=== PATIENT | female | born 1950 | race Caucasian/White ===

== ENCOUNTER 2018-04-12 08:04 | Inpatient (IN) | payer OTHER, SELFPAY ==
[2018-03-23 07:56] VITALS: BMI 28.1
[2018-04-12] VITALS (12 sets, daily range): BP systolic 110–167; BP diastolic 59–84; PULSE 15–64; RESP 12–56; TEMP 35.8–37; O2SAT 93–97; BMI 28.1
--- NOTE | 2018-04-12 06:00 | DI.RAD.S_ITS ---
PROCEDURE: XR KNEE RT 1TO2V INDICATIONS: prosthesis placement TECHNIQUE: 2 view(s) of the knee acquired. COMPARISON: SNO Outside Film, RG, KNEE 3VW (RT), 08/19/2016, 10:41. FINDINGS: Bones: Patient is status post knee joint arthroplasty. Hardware components are in expected positions. Visualized bony structures are intact. Soft tissues: Overlying postoperative changes are noted. Soft tissue air, edema, and fluid are present. Anterior skin hal are noted. No unexpected radiopaque foreign bodies are identified. IMPRESSION: Expected interval postsurgical changes related to a right knee arthroplasty. Dictated by: Jim Quick M.D. on 04/12/2018 at 13:09 Approved by: Jim Quick M.D. on 04/12/2018 at 13:10
[2018-04-12] MEDS: LACTATED RINGERS 1,000 ML 42 ML IV ×2 (09:20→13:52)
[2018-04-12] MEDS: PREGABALIN 75 MG CAPSULE PO (09:36)
[2018-04-12] MEDS: ACETAMINOPHEN 325 MG TABLET 975 MG PO ×3 (09:36→21:14)
[2018-04-12] MEDS: CELECOXIB 200 MG CAPSULE PO (11:04)
[2018-04-12] MEDS: CLINDAMYCIN 900 MG/50 ML PIGGYBACK 50 MG IV ×2 (11:50→20:30)
--- NOTE | 2018-04-12 11:54 | PM.PREOP ---
Pre-operative Note Interval Note Pre-op Check: Yes History & Physical Reviewed by Physician and Yes Exam Performed Changes: No
--- NOTE | 2018-04-12 11:54 | PM.OP.1 ---
Operative Date/Time/Diagnoses Date of procedure: 04/12/18 Time of procedure: 13:42 Pre-op diagnosis: Right knee osteoarthritis with valgus alignment Post-op diagnosis: same Procedure & Clinicians Procedure: Right total knee arthroplasty Same procedure as scheduled: Yes Indications: The patient presents today for total knee arthroplasty after failure of conservative treatment. The nature of the procedure including the risks and benefits, alternatives, postoperative course and expected outcome were discussed and all questions answered. Consent was obtained. Operative site confirmed and marked. Surgeon: Onesimo Fuentes Armored Cable Machine Operator: Howard Ca Anesthesia Type: General, Spinal and Local Operative Notes Findings: Severe valgus alignment requiring release of the lateral capsule. There is also some tilting of the patella requiring release of the right lateral retinaculum. Closure Type: primary Specimen(s): none sent Implants & Drains: [employer] Nephew Jesús BCS: 6 femoral component, 5 tibial component, 9 mm BCS polyethylene tray and a 32 x 9 mm round patella Applied: catheter and implant(s) Estimated Blood Loss (mL): 75 Blood products transfused: none Tourniquet time (min): 20 Procedure in detail: The patient was taken to the operative suite and placed under spinal anesthesia. The patient was given prophylactic antibiotics prior to surgery. The patient was also given tranexamic acid, 1 g, just prior to surgery for postoperative hemostasis. The lateral knee was prepped and the joint injected with 20 mL of 1% Lidocaine with epinephrine. The knee was then prepped and draped in usual sterile fashion. The leg was exsanguinated with an Esmarch dressing and the tourniquet raised to 250 torr. A 15 cm anterior incision was made. Next a medial trivector arthrotomy was made. The extensor mechanism was marked to ensure accurate repair. Initial exposing dissection was carried out medially and laterally. The knee was then extended and the patellar thickness was measured and a cut made removing approximately 9 mm of bone. The patella was then sized and drilled. Some excess lateral bone was excised and the patellofemoral ligament released. The knee was then flexed and the intramedullary femoral guide nat placed. The distal femoral cut was made in 6 ? of valgus at the + 0 position. The femoral size was measured and the appropriate cutting block was then placed and the anterior, posterior and chamfer cuts made. The extra medullary tibial alignment nat was then placed along the anatomic axis of the tibia appropriating the normal slope. The guide was set to remove approximately 8 mm from the less affected medial side. The proximal tibial cut was then made with an oscillating saw. All meniscus and bony debris was then removed. Flexion extension gaps were checked. The knee was quite tight laterally in flexion and extension as expected from her deformity. The lateral capsule was released with a 15 blade using a pie crust technique. This mostly balanced the knee although were still some slight medial laxity. The soft tissues were then injected with a combination of 20 mL of half percent Marcaine with epinephrine and 20 mL of Exparel. The trial components were then placed. The knee went into full extension and flexion beyond 120?. There was good medial- lateral balance throughout motion. Patellar tracking showed some tilting. The lateral retinaculum was released which corrected the tracking. The trial components were removed and the knee was cleansed with Pulsavac irrigation and dried. The final components were cemented in with high viscosity vacuum mixed bone cement with antibiotics. The knee was held in extension and the patellar clamp until the cement had adequately cured. The knee was irrigated and inspected for any further debris. The knee was then irrigated with dilute Betadine solution. The extensor mechanism was closed with 5 interrupted #1 Vicryl sutures in 90 degrees of flexion. The joint was then injected with a combination of 1 g of tranexamic acid and 20 mL of quarter percent Marcaine with epinephrine. The subcutaneous tissue was closed with 2-0 Vicryl. The skin was closed with hal and surgical adhesive. An Aquacell dressing and Bi wrap were then applied. The patient tolerated the procedure well and was returned to recovery room in good condition. Complications: none Condition: stable Disposition: PACU Plan for aftercare: [facility] protocol for total knee arthroplasty.
[2018-04-12] MEDS: TRANEXAMIC ACID 1,000 MG VIAL 1000 MG INJ (12:23)
[2018-04-12] MEDS: POVIDONE-IODINE 15 ML, SODIUM CHLORIDE 0.9% 250 ML TOP (12:51)
[2018-04-12] MEDS: BUPIVACAINE 0.5% W/ EPI (PF) 20 ML, BUPIVACAINE LIPOSOME 266 MG, SODIUM CHLORIDE 0.9% 2... INJ (12:53)
[2018-04-12] MEDS: BUPIVACAINE 0.5% (PF) 10 ML, TRANEXAMIC ACID 1,000 MG, SODIUM CHLORIDE 0.9% 20 ML INJ (12:55)
[2018-04-12] MEDS: LIDOCAINE 1% W/EPI INJ 20 ML INJ (12:56)
--- NOTE | 2018-04-12 13:03 | SUR.OPER ---
EXTRA FOLDED BLANKET UNDER LEFT ARM... PATIENT POSITIONED AWAKE ..STATED SHE HAD NO DISCOMFORT IN HER LEFT SHOULDER
[2018-04-12] MEDS: LACTATED RINGERS 1,000 ML 125 ML IV (15:42)
--- NOTE | 2018-04-12 15:54 | PC.NURSE ---
Day Shift- Report rec'd from JUAN Alfonso at 1425 in PACU on current pt status. Pt arrived to unit at 1440 via bed, A&OX4, oriented to call light, bed alarm on. Pt denied pain, nausea. O2 sat 96% on RA. Right knee aquacel dressing CDI, covered with max wrap. PPP, warm extremity. Pt able to flex foot at ankle and wiggle toes, more to left foot than right. Pt's Fredy in room and stated they live in [place] and have 3-4 stairs into their home.
--- NOTE | 2018-04-12 17:00 | PC.NURSE ---
1630- A/O x3, wide awake, CMS+, strength L>R, little bit of numbness still, wiggle toes and ankle waves+. 96% Geovanni LS clear, denkies SOB. BT+, denies nausea at this time, ate half sandwich, pudding, and fluids. Mendoza patent and draining clear yellow urine. Up with PT, no issues, 1PA FWW BSC for today r/t slight numbness remaining. Call light in reach, bed alarm on.
--- NOTE | 2018-04-12 17:09 | PT.IIE ---
Current Diagnoses Unilateral primary osteoarthritis, right knee (04/12/18) Surgery Performed Operation Date: 04/12/18 11:15 Actual Procedures p Total Knee Arthroplasty(Right) - Onesimo Fuentes MD Surgical History (Last Updated 03/23/18 @ 07:59 by Sameera Robles, RN) History of arthroplasty of left knee (Acute) Hx of appendectomy (Acute) Medical History (Last Updated 03/23/18 @ 08:17 by Sameera Robles RN) Edema (Acute) HTN (hypertension) (Acute) Hyperlipidemia (Acute) Left ankle sprain (Acute) Left rotator cuff tear (Acute) Sciatica (Acute) Wrist fracture, left (Acute) Physical Therapy Inpatient Evaluation/Re-Eval M1 PT/OT-IP Prior Functional Status Start: 04/12/18 16:47 Freq: NEEDED Status: Active Protocol: Document 04/12/18 16:48 EA (Rec: 04/12/18 17:09 EA [id number]) Medical Review Prior Functional Status Medical History Reviewed Yes Diet/Fluid Consistency Regular Communication Normal Mobility and Gait Unlimited distance with no walking device; use to hike 2 x week, no fall in the past six months Activities of Daily Living and IADL's Indepedent in all ADL's Prior Functional Level (Other details) 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 [employer] M2 PT-IP Current Condition Start: 04/12/18 16:47 Freq: NEEDED Status: Active Protocol: Document 04/12/18 16:48 EA (Rec: 04/12/18 17:09 EA [id number]) Physical Therapy Current Condition Current Condition Evaluation Date 04/12/18 Treatment Diagnosis s/p R TKA Onset Date 04/12/18 Weight Bearing Status Weight Bearing Status Non-Weight Bearing M3 PT-IP Subjective Start: 04/12/18 16:47 Freq: NEEDED Status: Active Protocol: Document 04/12/18 16:48 EA (Rec: 04/12/18 17:09 EA [id number]) Subjective Physical Therapy Visit Type Type Initial Evaluation Visit Start Time 16:05 Visit Stop Time 16:45 Total Visit Minutes 40 Physical Therapy Visit Comments Patient Comments Patient wants to practice stairs prior to discharge tomorrow. Patient Goals Patient wants to be independent in all functional transfers and mobility Therapy Pain Assessment Pain When Pain Assessed At Rest Pain Present Pain Present Pain Reported Location Left Ankle Intensity 2 Scale Used Numeric (1 - 10) Description Acute Throbbing Pain Management Techniques Apply Cold M4 PT-IP Mobility and Gait Start: 04/12/18 16:47 Freq: NEEDED Status: Active Protocol: Document 04/12/18 16:48 EA (Rec: 04/12/18 17:09 EA [id number]) PT-Bed Mobility Assessment Supine to Sit Supine to Sit Standby Assistance Sit to Supine Sit to Supine Standby Assistance Scooting Scooting to Edge of Bed Standby Assistance PT-Transfer Assessment Sit to and From Stand Sit to and from Stand Standby Assistance Equipment Transfer Assistive Device Gait Belt Front Wheeled Walker Transfers Transfer Destination Bed Chair Bedside Commode Transfer Technique stepping Transfer Ability Level of Assist Standby Assistance Gait Assessment Gait Gait Assistance Required: Contact Guard Assist Distance (Feet) 8 Able to Maintain Weight Bearing Status Yes During Gait Assistive Devices Assistive Device Front Wheeled Walker Gait Deviations General Gait Pattern Antalgic Step-to Gait Factors Limiting Gait Function Factors Limiting Gait Function Decreased Activity Tolerance Decreased Sensation Decreased Strength Pain Comments Gait Comments Requires verbal cues for proper foot placement PT-Balance Assessment Sitting Balance and Reactions Static Sitting Balance Ability Good Dynamic Sitting Balance Ability Good Standing Balance and Reactions Static Standing Balance Ability Good Dynamic Standing Balance Ability Fair M5 PT-IP Objective Assessments Start: 04/12/18 16:47 Freq: NEEDED Status: Active Protocol: Document 04/12/18 16:48 EA (Rec: 04/12/18 17:09 EA [id number]) Orientation Orientation/Cognition Level of Alertness Alert Orientation Name Month Year Day of Week Place Situation Language Function Ability No Deficits Noted Safety Awareness Understands Safety Issues Memory Description No Deficits Noted Gross Range of Motion Upper Extremity ROM Assessment Within Functional Limits Lower Extremity ROM Assessment Right Impaired Impairments Right 0-90 Strength Upper Extremity Strength Assessment Within Functional Limits Lower Extremity Strength Assessment Right Impaired Knee 3/5 Comments Strength Comments Right knee extensors and flexors not properly assessed due to pre-caution but with at least 3/5 Coordination Assessment Gross Coordination Gross Coordination WNL Assessment Finger to Nose Test Normal Performance Pronation/Supination Test Normal Performance Heel on Cisneros Test Normal Performance Sensation Assessment Comments Sensation Comments 20% deficit to light tough/ pain/ pressure from thigh to foot of RLE RLE proprioception is 100% intact M6 PT-IP Treatment Start: 04/12/18 16:47 Freq: NEEDED Status: Active Protocol: Document 04/12/18 16:48 EA (Rec: 04/12/18 17:09 EA [id number]) Physical Therapy Treatment Exercises Exercises Ankle Pumps Quad Sets Heel Slides Straight Leg Raises Short Arc Quads Passive Knee Extension Hang Seated Knee Flexion/Extension Education Education Provided Precautions Weight Bearing Status Post-Op Packet Safety M7 PT-IP Assessment and Plan Start: 04/12/18 16:47 Freq: NEEDED Status: Active Protocol: Document 04/12/18 16:48 EA (Rec: 04/12/18 17:09 EA [id number]) PT Summary Assessment and Plan Potential Rehabilitation Potential Excellent Status of Condition at Evaluation Stable Summary Impairments Pain ROM Strength Balance Bed Mobility Transfers Gait Activity Tolerance Progress Towards Goals Progressing Toward Goals Assessment Summary Pt exhibits decreased tolerance to transfers and mobility due to fatigue, RLE weakness and decreased sensation. Patient requires assistance at this time for safety. Patient would benefit with skilled PT to reach functional transfers/mobility independence prior to discharge. Pt demonstrates high recovery potential. Goals Bed Mobility Goal Independent Transfer Goal Independent Gait Goal Independent Gait Distance 100 ft Days to Meet Goals 2 Frequency of Treatment Frequency Of Treatment Twice a Day Treatment Plan Physical Therapy Treatment Plan Bed Mobility Training Transfer Training Gait Training Therapeutic Exercise Balance Retraining Post Op Education Discharge Planning Hot or Cold Pack Other Recommendations and Next Treatment Room to hallway amb or as Focus tolerated, stairs practice Recommendations To Nursing Amount of Assist Needed 1 Person Assist Discharge Recommendations PT Discharge Recommendations Home with Assistance
[2018-04-12] MEDS: ASPIRIN EC 81 MG TABLET PO (21:14)
[2018-04-13 00:25] VITALS: BP 134/77; PULSE 59; RESP 18; TEMP 36.4; O2SAT 98
[2018-04-13] MEDS: CLINDAMYCIN 900 MG/50 ML PIGGYBACK 50 MG IV (03:47)
[2018-04-13] MEDS: LACTATED RINGERS 1,000 ML 125 ML IV (03:50)
[2018-04-13 04:31] VITALS: BP 133/76; PULSE 55; RESP 16; TEMP 36.6; O2SAT 95
[2018-04-13 05:39] LABS: Hematocrit 29.6 % (36-46); Hemoglobin 9.4 g/dL (12.0-16.0)
[2018-04-13 07:43] VITALS: BP 144/80; PULSE 62; RESP 16; TEMP 36.7; O2SAT 93
--- NOTE | 2018-04-13 07:52 | PM.DS.1 ---
History of Present Illness Date Patient Seen: 04/13/18 Time Patient Seen: 07:52 Chief complaint: [id number] RIGHT TOTAL KNEE ARHTROPLASTY Narrative: Details of the patient's H&P can be found in the electronic chart. Discharge Providers Date of admission: 04/12/18 08:04 Primary care physician: Tierra Goldberg MD Consults: 04/12/18 14:46 Consult to Discharge Planning Routine Comment: Consult to Physical Therapy Evaluate & Treat Comment: Physician Instructions: postop TKA protocol Consult to Respiratory Therapy Evaluate & Treat Comment: Physician Instructions: Evaluate and treat Discharge provider: Jennifer Monroy PA-C Discharge Date: 04/13/18 Summary Discharge Diagnosis: Right knee osteoarthritis Postoperative anemia Hospital Course: Patient was admitted and taken to the operating room where she had a right total knee replacement by Dr. Fuentes. Postop day 1 pain was under control, patient able to urinate without difficulty in eating and drinking well. She will be discharged home later this afternoon if cleared by physical therapy. She is a [facility] patient and has her prescriptions for home already. Physical therapy has already been set up for her. She will follow up in office next week. Status at Discharge Cognitive/behavioral status at discharge: Alert and orient x3 Functional status at discharge: uses cane/walker Overall status at discharge: patient is progressing back to baseline Time Spent with Patient Less than 30 minutes Exam Vital Signs (past 8 hours): - 04/13/18 00:25 04/13/18 04:31 Temperature 97.5 F L 97.9 F Pulse Rate 59 L 55 L Respiratory Rate 18 16 Blood Pressure 134/77 133/76 Pulse Oximetry 98 95 Oxygen Delivery Method Room Air Oxygen Flow Rate 0 Narrative Exam Narrative: Patient in bed. Appears comfortable. Alert orient x3. Right knee dressing clean dry and intact. With an Bi bandage overwrap. Bilateral calves soft and nontender. 5/5 right ankle strength. Neurovascular status intact. Objective Labs Result Diagrams: 04/13/18 05:03 Labs: Laboratory Results - last 24 hr 04/13/18 05:03 Hgb 9.4 L Hct 29.6 L Discharge Plan Discharge Plan Patient Disposition: Home Discharge comment: Start therapy next week. Take aspirin 325 mg daily x6 weeks for DVT prophylaxis. Discharge Med Rec/Prescriptions Prescriptions: New acetaminophen 325 mg Tablet 975 mg PO TID Qty: 0 RF: 0 oxycodone 5 mg Tablet 5 mg PO Q3HR PRN (Reason: Pain, Moderate (4-6)) Qty: 0 RF: 0 Continue LACTOBACILLUS ACIDOPH (Bacid) 1 tab PO BID Qty: 0 RF: 0 glucosamine sulfate [Glucosamine] 500 mg Tablet 1,500 mg PO BID Qty: 0 RF: 0 [Cortisol] 1 tab PO BEDTIME Qty: 0 RF: 0 [Carditone] 200 mg PO BID Qty: 0 RF: 0 [Fencane] 1 tab PO BID Qty: 0 RF: 0 Changed aspirin 325 MG tablet,delayed release (DR/EC) 325 mg PO DAILY Qty: 0 RF: 0 Follow up/Referrals: Onesimo Fuentes MD [Physician] - (Follow-up as scheduled date and time. Contact office with any issues or concerns.) Provider Discharge Instructions Diet: Diet as Tolerated Diet comment: Increased iron containing foods. Activity: Activity as tolerated. Ambulate with assistance of a walker/cane. Continue home exercises. Cold/Heat Therapy: Apply ice to the extremity as needed for pain and inflammation. Skin/Wound/Dressing Care Report to your healthcare provider any signs of infection, such as:: chills, fever, increased pain and unusual drainage Dressing: Keep dressing clean dry and intact. May shower. May remove the Bi wrap tomorrow. Discharge Data Primary Care Provider: Tierra Goldberg Attending Provider: Onesimo Fuentes Admit Date/Time: 04/12/18 08:04 Quality VTE Deep Vein Thrombosis/Pulmonary Embolism Present on Admission: No
--- NOTE | 2018-04-13 08:25 | PM.PN.1 ---
Subjective Date Patient Seen: 04/13/18 Time Patient Seen: 08:25 Interval history: Patient seen postop. She is up sitting in her chair. She reports no complications or complaints regarding her anesthesia. Exam Vital Signs (past 8 hours): - 04/13/18 04:31 Temperature 97.9 F Pulse Rate 55 L Respiratory Rate 16 Blood Pressure 133/76 Pulse Oximetry 95 Oxygen Delivery Method Room Air Oxygen Flow Rate 0 Objective Labs Result Diagrams: 04/13/18 05:03 Labs: Laboratory Results - last 24 hr 04/13/18 05:03 Hgb 9.4 L Hct 29.6 L Quality VTE Deep Vein Thrombosis/Pulmonary Embolism Present on Admission: No
[2018-04-13] MEDS: ACETAMINOPHEN 325 MG TABLET 975 MG PO ×2 (08:43→13:55)
[2018-04-13] MEDS: ASPIRIN EC 81 MG TABLET PO (08:43)
[2018-04-13] MEDS: OXYCODONE IR 5 MG TABLET PO ×2 (08:46→11:55)
--- NOTE | 2018-04-13 11:53 | PT.IPTN ---
Current Diagnoses Unilateral primary osteoarthritis, right knee (04/12/18) Surgery Performed Operation Date: 04/12/18 11:15 Actual Procedures p Total Knee Arthroplasty(Right) - Onesimo Fuentes MD Physical Therapy Treatment Note M2 PT-IP Current Condition Start: 04/12/18 16:47 Freq: NEEDED Status: Active Protocol: Document 04/12/18 16:48 EA (Rec: 04/12/18 17:09 EA [id number]) Physical Therapy Current Condition Current Condition Evaluation Date 04/12/18 Treatment Diagnosis s/p R TKA Onset Date 04/12/18 Weight Bearing Status Weight Bearing Status Non-Weight Bearing M3 PT-IP Subjective Start: 04/12/18 16:47 Freq: NEEDED Status: Active Protocol: Document 04/13/18 11:44 SA (Rec: 04/13/18 11:52 SA [id number]) Subjective Physical Therapy Visit Type Type Treatment Note Visit Start Time 09:36 Visit Stop Time 10:07 Total Visit Minutes 31 Notes Pt hoping to d/c home this afternoon. Number of SHIPSM[facility] Visits 1 Physical Therapy Visit Comments Patient Comments Pt up and ready for PT, Mendoza removed prior to session. Rates knee pain as 5/10, pre- medicated. Therapy Pain Assessment Pain When Pain Assessed During Mobility Pain Present Pain Present Pain Reported Location Right Leg Intensity 5 Scale Used Numeric (1 - 10) Pain Management Techniques Apply Cold Timing of Activity with Medications M4 PT-IP Mobility and Gait Start: 04/12/18 16:47 Freq: NEEDED Status: Active Protocol: Document 04/13/18 11:44 SA (Rec: 04/13/18 11:52 SA [id number]) PT-Bed Mobility Assessment Supine to Sit Supine to Sit Standby Assistance Sit to Supine Sit to Supine Standby Assistance Scooting Scooting to Edge of Bed Standby Assistance PT-Transfer Assessment Sit to and From Stand Sit to and from Stand Standby Assistance Equipment Transfer Assistive Device Gait Belt Front Wheeled Walker Orthotic/Prosthetic Devices or Brace: No Transfers Transfer Destination Bed Chair Transfer Technique Stand Step Pivot Transfer Ability Level of Assist Standby Assistance Gait Assessment Gait Gait Assistance Required: Standby Assistance Distance (Feet) 75 Able to Maintain Weight Bearing Status Yes During Gait Assistive Devices Assistive Device Gait Belt Front Wheeled Walker Gait Deviations General Gait Pattern Antalgic Step-to Gait Factors Limiting Gait Function Factors Limiting Gait Function Decreased Activity Tolerance Decreased Sensation Decreased Strength Pain Comments Gait Comments Pt able to correct step to gait to stepping through gait pattern wit verbal cues. Increased WBing through UEs/ FWW. Stair Climbing Assessment Evaluation Level of Assist On Stairs Contact Guard Assistance Devices Stair Climbing Assistive Devices Straight Cane Right Railing Technique/Endurance Stair Climbing Direction Ascend and Descend Stair Climbing Technique Step to Step Number of Steps Climbed 3 Query Text: Stair Climbing Set # Repetitions (reps) 3 Comments Stair Climbing Comments Pt receptive to cues and able to compelte step to gait with CGA and use of R rail ascending and SPC as she would do at home getting in/out of house. will be 10/01 caregiver. M5 PT-IP Objective Assessments Start: 04/12/18 16:47 Freq: NEEDED Status: Active Protocol: Document 04/12/18 16:48 EA (Rec: 04/12/18 17:09 EA [id number]) Orientation Orientation/Cognition Level of Alertness Alert Orientation Name Month Year Day of Week Place Situation Language Function Ability No Deficits Noted Safety Awareness Understands Safety Issues Memory Description No Deficits Noted Gross Range of Motion Upper Extremity ROM Assessment Within Functional Limits Lower Extremity ROM Assessment Right Impaired Impairments Right 0-90 Strength Upper Extremity Strength Assessment Within Functional Limits Lower Extremity Strength Assessment Right Impaired Knee 3/5 Comments Strength Comments Right knee extensors and flexors not properly assessed due to pre-caution but with at least 3/5 Coordination Assessment Gross Coordination Gross Coordination WNL Assessment Finger to Nose Test Normal Performance Pronation/Supination Test Normal Performance Heel on Cisneros Test Normal Performance Sensation Assessment Comments Sensation Comments 20% deficit to light tough/ pain/ pressure from thigh to foot of RLE RLE proprioception is 100% intact M6 PT-IP Treatment Start: 04/12/18 16:47 Freq: NEEDED Status: Active Protocol: Document 04/13/18 11:44 SA (Rec: 04/13/18 11:52 SA [id number]) Physical Therapy Treatment Exercises Exercises Ankle Pumps Gluteal Sets Quad Sets Heel Slides Short Arc Quads Seated Knee Flexion/Extension Education Education Provided Precautions Weight Bearing Status Post-Op Packet Safety Equipment Issued Equipment Type and Company Pt has FWW, SPC and grab bar in bathroom at home. M7 PT-IP Assessment and Plan Start: 04/12/18 16:47 Freq: NEEDED Status: Active Protocol: Document 04/13/18 11:44 (Rec: 04/13/18 11:52 [id number]) PT Summary Assessment and Plan Potential Rehabilitation Potential Excellent Status of Condition at Evaluation Stable Summary Assessment Summary Pt progressing well, plans to have OP PT at home and there to assist with care. Managed stairs safely. Frequency of Treatment Frequency Of Treatment Twice a Day Recommendations To Nursing Amount of Assist Needed 1 Person Assist Discharge Recommendations PT Discharge Recommendations Home with Assistance
[2018-04-13 12:15] VITALS: BP 115/65; PULSE 62; RESP 16; TEMP 36.8; O2SAT 93
--- NOTE | 2018-04-13 14:06 | CM.IDA ---
Discharge Planning/Care Management CM Discharge Assessment Start: 04/13/18 14:01 Freq: Status: Active Protocol: Document 04/13/18 14:01 BIJAL (Rec: 04/13/18 14:06 BIJAL [id number]) Discharge Planning Assessment Assigned Pole Classifier TIFFANIE Palomo DPOA/Assigned Designee Name Fredy Schulz, spouse Contact Information [phone], Tuesday Advance Directives? Yes History Provided By Patient Prior Living Arrangements House Household Members spouse Type of transporation used prior to Drives own vehicle admit Independent with ADL's Yes Is patient alert and oriented? Yes Comment Indp and active, eager to return home. Barriers to Discharge No Transportation Arrangement Spouse will oyster picker, priority boarding pass for y to Tuesday Referrals Initiated None needed Additional Comment Pt eager to return home and states no needs. PT has cleared for home [place]. Whiteboard Updated in Patient Room with Yes name and ext. # of Pole Classifier
--- NOTE | 2018-04-13 14:16 | PC.NURSE ---
Day shift: Pt left unit at approx 1415 to private vehicle to go back to [facility] [place] Paperwork signed and all questions answered. Pt has all personal belongings and info on s/s of infection and pain control narcs as well as ice.
--- NOTE | 2018-04-13 14:37 | PT.IPTN ---
Current Diagnoses Unilateral primary osteoarthritis, right knee (04/12/18) Surgery Performed Operation Date: 04/12/18 11:15 Actual Procedures p Total Knee Arthroplasty(Right) - Onesimo Fuentes MD Physical Therapy Treatment Note M2 PT-IP Current Condition Start: 04/12/18 16:47 Freq: NEEDED Status: Discharge Protocol: Document 04/12/18 16:48 EA (Rec: 04/12/18 17:09 EA [id number]) Physical Therapy Current Condition Current Condition Evaluation Date 04/12/18 Treatment Diagnosis s/p R TKA Onset Date 04/12/18 Weight Bearing Status Weight Bearing Status Non-Weight Bearing M3 PT-IP Subjective Start: 04/12/18 16:47 Freq: NEEDED Status: Discharge Protocol: Document 04/13/18 14:31 SA (Rec: 04/13/18 14:37 SA [id number]) Subjective Physical Therapy Visit Type Type Treatment Note Visit Start Time 01:00 Visit Stop Time 01:32 Total Visit Minutes 32 Notes Nurse preparing patient for d/ c this afternoon. 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 Therapy Pain Assessment Pain When Pain Assessed During Mobility Pain Present Pain Present Pain Reported Location Right Leg Intensity 3 Scale Used Numeric (1 - 10) Pain Management Techniques Apply Cold Timing of Activity with Medications M4 PT-IP Mobility and Gait Start: 04/12/18 16:47 Freq: NEEDED Status: Discharge Protocol: Document 04/13/18 14:31 SA (Rec: 04/13/18 14:37 SA [id number]) PT-Bed Mobility Assessment Supine to Sit Supine to Sit Standby Assistance Sit to Supine Sit to Supine Standby Assistance Scooting Scooting to Edge of Bed Standby Assistance PT-Transfer Assessment Sit to and From Stand Sit to and from Stand Standby Assistance Equipment Transfer Assistive Device Gait Belt Front Wheeled Walker Orthotic/Prosthetic Devices or Brace: No Transfers Transfer Destination Chair Toilet Transfer Technique Stand Step Pivot Transfer Ability Level of Assist Standby Assistance Comments Mobility Comments Pt completed safe stand pivot tx to/from toilet with grab bar and FWW. Pt states this toilet is the same height as toilet at home. Gait Assessment Gait Gait Assistance Required: Standby Assistance Distance (Feet) 120 Able to Maintain Weight Bearing Status Yes During Gait Assistive Devices Assistive Device Gait Belt Front Wheeled Walker Gait Deviations General Gait Pattern Antalgic Decreased Stride Length Factors Limiting Gait Function Factors Limiting Gait Function Decreased Activity Tolerance Decreased Sensation Decreased Strength Pain Comments Gait Comments Pt self corrscting gait with decreased WBing through UEs and step through gait pattern. M5 PT-IP Objective Assessments Start: 04/12/18 16:47 Freq: NEEDED Status: Discharge Protocol: Document 04/12/18 16:48 EA (Rec: 04/12/18 17:09 EA [id number]) Orientation Orientation/Cognition Level of Alertness Alert Orientation Name Month Year Day of Week Place Situation Language Function Ability No Deficits Noted Safety Awareness Understands Safety Issues Memory Description No Deficits Noted Gross Range of Motion Upper Extremity ROM Assessment Within Functional Limits Lower Extremity ROM Assessment Right Impaired Impairments Right 0-90 Strength Upper Extremity Strength Assessment Within Functional Limits Lower Extremity Strength Assessment Right Impaired Knee 3/5 Comments Strength Comments Right knee extensors and flexors not properly assessed due to pre-caution but with at least 3/5 Coordination Assessment Gross Coordination Gross Coordination WNL Assessment Finger to Nose Test Normal Performance Pronation/Supination Test Normal Performance Heel on Cisneros Test Normal Performance Sensation Assessment Comments Sensation Comments 20% deficit to light tough/ pain/ pressure from thigh to foot of RLE RLE proprioception is 100% intact M6 PT-IP Treatment Start: 04/12/18 16:47 Freq: NEEDED Status: Discharge Protocol: Document 04/13/18 14:31 SA (Rec: 04/13/18 14:37 [id number]) Physical Therapy Treatment Exercises Exercises Ankle Pumps Gluteal Sets Quad Sets Heel Slides Short Arc Quads Seated Knee Flexion/Extension Education Education Provided Precautions Weight Bearing Status Post-Op Packet Safety Equipment Issued Equipment Type and Company Pt does not need any equitment . M7 PT-IP Assessment and Plan Start: 04/12/18 16:47 Freq: NEEDED Status: Discharge Protocol: Document 04/13/18 14:31 SA (Rec: 04/13/18 14:37 [id number]) PT Summary Assessment and Plan Potential Rehabilitation Potential Excellent Status of Condition at Evaluation Stable Summary Assessment Summary Pt to d/c this afternoon. Able to navigate stairs, gait on even surfaces and safe transfers and bed mobiliy. 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 Frequency of Treatment Frequency Of Treatment Twice a Day Discharge Recommendations PT Discharge Recommendations Home with Assistance
== END 2018-04-13 14:18 | disposition home or self-care (01) | DRG 470 ==
PROVIDERS: Admitting Provider Orthopaedic Surgery; PCP Family Medicine; Visit Provider Orthopaedic Surgery
PROC: 0SRC0JZ Replacement of Right Knee Joint with Synthetic Substitute, Open Approach (ICD-10-PCS; CPT 27447; principal; 2018-04-12 11:15)
DX: M17.11 Unilateral primary osteoarthritis, right knee (principal); I10 Essential (primary) hypertension; Z96.652 Presence of left artificial knee joint
CPT/HCPCS: 36415; 73560; 85014; 85018; 97110; 97116; 97161; 97530; 97535; C1776; C9290; J1100; J2250; J2274; J2405; J2704; J3010